=== PATIENT | female | born 1985 | race Caucasian/White ===

== ENCOUNTER 2019-07-30 19:43 | Emergency (ER) | payer OTHER ==
[~2019-07-30] VITALS: Ht 160 cm; Wt 75.3 kg
[2019-07-30 20:01] VITALS: BP_SYST 130
--- NOTE | 2019-07-30 20:10 | NUR ---
Pt biba to bed 6 for evaluaton
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
--- NOTE | 2019-07-30 20:15 | NUR ---
Vini beckman in ED - 07/30/[email or web address] Oswald at [facility].
--- NOTE | 2019-07-30 20:22 | NUR ---
ER Dr. Traylor at bedside examining patient.
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
--- NOTE | 2019-07-30 22:10 | NUR ---
C-collar removed per Dr. Oswald.
[2019-07-30 22:52] VITALS: BP_SYST 125
--- NOTE | 2019-07-30 22:52 | NUR ---
Patient given written and verbal discharge instructions and verbalizes understanding. ER MD discussed with patient the results and treatment provided. Patient in stable condition. ID arm band removed. Rx of Zofran and [place] given. Patient educated on pain management and to follow up with PMD. Pain Scale 0/10. Opportunity for questions provided and answered. Medication side effect fact sheet provided.
--- NOTE | 2019-07-30 22:52 | NUR ---
Note undone in EDM - 07/31/19 at 0616 by [email or web address] Patient given written and verbal discharge instructions and verbalizes understanding. ER discussed with patient the results and treatment provided. Patient in stable condition. ID arm band removed. Rx of Suzette given. Patient educated on pain management and to follow up with PMD. Pain Scale 0/10. Opportunity for questions provided and answered. Medication side effect fact sheet provided.
== END 2019-07-30 22:52 | disposition home or self-care (01) ==
LOC: SED 19:43
DX: S22.31XA Fracture of one rib, right side, initial encounter for closed fracture (principal); S13.4XXA Sprain of ligaments of cervical spine, initial encounter; S23.3XXA Sprain of ligaments of thoracic spine, initial encounter; V43.52XA Car driver injured in collision with other type car in traffic accident, initial encounter; Y93.89 Activity, other specified; Y92.410 Unspecified street and highway as the place of occurrence of the external cause; Y99.8 Other external cause status
CPT/HCPCS: 71045; 72072-TC; 72125-TC; 81002; 81025; 99284